=== PATIENT | male | born 1985 | race Hispanic/Latino ===

== ENCOUNTER 2018-04-20 07:00 | Emergency (ER) | payer OTHER ==
[2018-04-20] MEDS ORDERED: CEPHALEXIN 500 MG CAPSULE ONE (07:35)
[2018-04-20] MEDS ORDERED: SULFAMETHOX-TMP DS 800/160 TAB ONE (07:36)
[2018-04-20] MEDS ORDERED: IBUPROFEN 600 MG TABLET ONE (07:42)
== END 2018-04-20 08:02 | disposition home or self-care (01) ==
LOC: EDH 07:00
DX: L03.211 Cellulitis of face (principal); Z72.0 Tobacco use

== ENCOUNTER 2018-04-25 17:19 | Emergency (ER) | payer OTHER | END 2018-04-25 18:10 | disposition home or self-care (01) | LOC: EDH 17:19 | DX: L02.01 Cutaneous abscess of face (principal); Z72.0 Tobacco use | CPT/HCPCS: 10060 ==